=== PATIENT | male | born 1990 | race Caucasian/White ===

== ENCOUNTER 2024-11-24 22:12 | Emergency (ER) | payer OTHER, SELFPAY ==
--- NOTE | 2024-11-24 22:15 | XRR_ITS ---
PROCEDURE INFORMATION: Exam: XR Left Foot Exam date and time: 11/24/2024 10:51 PM Age: 34 years old Clinical indication: Left; Patient HX: Lt foot pain after dropping piano onto foot; Deep open lac to lateral lt foot near 5th digit TECHNIQUE: Imaging protocol: Radiologic exam of the left foot. Views: 3 or more views. COMPARISON: No relevant prior studies available. FINDINGS: Bones/joints: There is a comminuted fracture involving the base of the distal 1st phalanx. There is a transverse fracture through the tuft of the 1st digit. There are comminuted minimally displaced fractures through the distal aspect of the proximal 2nd and 3rd phalanx. Suspected nondisplaced fracture through the mid aspect of the mid 2nd phalanx. There is a comminuted minimally displaced fracture through the proximal mid 4th phalanx. There is a comminuted minimally displaced fracture through the mid proximal 5th phalanx. No additional fractures identified. Soft tissues: A small amount of subcutaneous emphysema involves the lateral aspect of the forefoot suggesting a puncture wound. XR/XR foot LT min 3V* [id number] IMPRESSION: 1. Fractures involving the 1st through 5th digits as detailed. 2. Suspected laceration injury involving the lateral aspect of the forefoot.
[2024-11-24 22:22] VITALS: BP 144/83; PULSE 98; RESP 18; TEMP 36.7; O2SAT 96; BMI 20.3
--- NOTE | 2024-11-24 23:35 | ED_ITS ---
Documented by User: Devan Ji DO 11/25/24 01:27 HPI - Extremity Problem General: Chief complaint: Extremity Injury, Lower Stated complaint: Dropped Piano on L Foot Time Seen by Provider: 11/24/24 23:29 History of Present Illness: Patient arrives with private vehicle with complaints of left foot pain. Patient dropped a PNO on his left foot and has extreme pain in his distal foot. Patient is actively bleeding but bleeding is controlled at this time. Related Data Previous Rx's Medication Instructions Recorded cephalexin 500 mg capsule 500 mg PO Q6H 7 days #28 caps 11/25/24 hydrocodone 5 mg-acetaminophen 325 1 tab PO Q6H PRN pain #14 tabs 11/25/24 mg tablet Allergies Allergy/AdvReac Type Severity Reaction Status Date / Time No Known Allergies Allergy Verified 11/24/24 22:26 Review of Systems General: Reports: 10 or more systems reviewed and unremarkable except in HPI and below Physical Exam Const: COMMON NORMALS: no acute distress, average body habitus, patient oriented x3, no limitations, healthy appearing, alert and well nourished HENMT: COMMON NORMALS: normocephalic, atraumatic, hearing grossly normal bilaterally, external ears normal, Normal external nose present and moist oral mucous membranes HEAD & SCALP: normocephalic and atraumatic NOSE: Normal external nose present EXTERNAL EAR: Yes external ears normal Neck/C-Spine: COMMON NORMALS: no JVD Chest: COMMONS NORMALS: normal inspection of the chest and normal palpation of entire chest wall Resp: COMMON NORMALS: normal respiratory effort, No retractions, No use of accessory muscles and clear to auscultation bilaterally AUSCULTATION: clear to auscultation bilaterally Cardio: COMMON NORMALS: no JVD, regular rate, regular rhythm, S1 normal heart sound present, S2 normal heart sound present, No gallops present (Cardio), No clicks present (Cardio), No murmurs present (Cardio) and No rub (Cardio) RATE: regular rate RHYTHM: regular rhythm HEART SOUNDS: S1 normal heart sound present and S2 normal heart sound present Extremity: NARRATIVE EXTREMITY EXAM: Positive sensation in all EXTR extremities toes, good cap refill, multiple lacerations and bruising across metatarsal phalangeal area. These were sutured up by the PA. Neuro: COMMON NORMALS: patient oriented x3 SENSORIUM/ORIENTATION: Yes alert Course Vital Signs: Vital signs: Vital Signs Temperature 98.1 F 11/24/24 22:22 Pulse Rate 98 11/24/24 22:22 Respiratory Rate 20 H 11/25/24 00:06 Blood Pressure 144/83 11/24/24 22:22 Pulse Oximetry 100 11/25/24 00:06 Oxygen Delivery Me thod Room Air 11/24/24 22:22 MDM - Extremity (Nontraumatic) Medical Decision Making Discussed case with Dr. Ralph podiatry we will so with the lacerations up place patient in a boot or cast shoe give him an antibiotic pain control and have him follow-up with Dr. Ralph on Wednesday. Medical Records I reviewed the patient's medical records. Lab Data I reviewed the patient's lab results. Radiology Impressions Foot X-Ray 11/24/24 22:15 IMPRESSION: 1. Fractures involving the 1st through 5th digits as detailed. 2. Suspected laceration injury involving the lateral aspect of the forefoot. All radiology interpretation(s) finalized by discharge Discharge Plan Discharge Patient Disposition: Home Clinical Impression: Open fracture of multiple phalanges of toe of left foot Condition: Stable Prescriptions: New hydrocodone-acetaminophen 5-325 mg tablet 1 tab PO Q6H PRN (Reason: pain) Qty: 14 0RF cephalexin 500 mg capsule 500 mg PO Q6H 7 Days Qty: 28 0RF Discharge Orders: Discharge ED (Routine); Ordered 11/25/24 Ordered By: Devan Ji Patient Instructions: Fractures - Phalanx (Toe), Opioid Safety, Pain Management Activity Restrictions/Additional Instructions: You have been called in antibiotics and pain medicine. Please pick them up at the pharmacy and take them as directed. Please follow-up with Dr. Ralph podiatry's office first thing Wednesday morning. Call for an appointment. He said he will get in that day. Please keep your wounds clean and dry. Please use your crutches and be nonweightbearing as much as possible. Coding Level of Care Code ED Rotary Swaging Machine Operator for Chg Fwd Documented by User: AMANDA Hayden 11/25/24 00:53 HPI - Extremity Problem General: Chief complaint: Extremity Injury, Lower Stated complaint: Dropped Piano on L Foot Time Seen by Provider: 11/24/24 23:29 Related Data Previous Rx's Medication Instructions Recorded cephalexin 500 mg capsule 500 mg PO Q6H 7 days #28 caps 11/25/24 hydrocodone 5 mg-acetaminophen 325 1 tab PO Q6H PRN pain #14 tabs 11/25/24 mg tablet Allergies Allergy/AdvReac Type Severity Reaction Status Date / Time No Known Allergies Allergy Verified 11/24/24 22:26 Procedures Laceration Laceration 1: Site: lower extremity Side (If applicable): left Size (cm): 6 Description: flap and clean Depth: simple, single layer Local Anesthetic: lidocaine 1% Amount of anesthesia used (mL): 10 Pre-repair: wound explored, irrigated extensively and deep structures intact Skin layer closed with: nylon Size (cm): 4-0 Number of sutures: 10 Technique: simple, interrupted Laceration 2: Site: lower extremity Side (If applicable): left Size (cm): 1 Description: linear and clean Depth: simple, single layer Local Anesthetic: lidocaine 1% and with epi Amount of anesthesia used (mL): 1 Pre-repair: wound explored Skin layer closed with: nylon Size (cm): 4-0 Number of sutures: 1 Technique: simple, interrupted Course Vital Signs: Vital signs: Vital Signs Temperature 98.1 F 11/24/24 22:22 Pulse Rate 98 11/24/24 22:22 Respiratory Rate 20 H 11/25/24 00:06 Blood Pressure 144/83 11/24/24 22:22 Pulse Oximetry 100 11/25/24 00:06 Oxygen Delivery Me thod Room Air 11/24/24 22:22 MDM - Extremity (Nontraumatic) Lab Data Radiology Impressions Foot X-Ray 11/24/24 22:15 IMPRESSION: 1. Fractures involving the 1st through 5th digits as detailed. 2. Suspected laceration injury involving the lateral aspect of the forefoot. Discharge Plan Discharge Patient Disposition: Home Clinical Impression: Open fracture of multiple phalanges of toe of left foot Condition: Stable Prescriptions: New hydrocodone-acetaminophen 5-325 mg tablet 1 tab PO Q6H PRN (Reason: pain) Qty: 14 0RF cephalexin 500 mg capsule 500 mg PO Q6H 7 Days Qty: 28 0RF Discharge Orders: Discharge ED (Routine); Ordered 11/25/24 Ordered By: Devan Ji Patient Instructions: Fractures - Phalanx (Toe), Opioid Safety, Pain Management Activity Restrictions/Additional Instructions: You have been called in antibiotics and pain medicine. Please pick them up at the pharmacy and take them as directed. Please follow-up with Dr. Ralph podiatry's office first thing Wednesday morning. Call for an appointment. He said he will get in that day. Please keep your wounds clean and dry. Please use your crutches and be nonweightbearing as much as possible. Coding Level of Care Code ED Rotary Swaging Machine Operator for Luis Garcia
[2024-11-25] MEDS: ondansetron 2 mg/ML SDV 2 mL 8 MG IVP (00:05)
[2024-11-25 00:06] VITALS: RESP 20; O2SAT 100
[2024-11-25] MEDS: morphine 4 mg/mL SDV 1 mL 8 MG IVP (00:06)
[2024-11-25] MEDS: ceFAZolin 1,000 mg SDV 1000 MG IVP (00:08)
[2024-11-25] MEDS: HYDROcodone-acetaminophen 5-325 mg Tablet 2 TAB PO (02:19)
[2024-11-25] MEDS: cephALEXin 500 mg Capsule PO (02:19)
[2024-11-25 02:20] VITALS: BP 142/96; PULSE 62; RESP 18; O2SAT 100
== END 2024-11-25 02:24 | disposition home or self-care (01) ==
PROVIDERS: Emergency Provider Emergency Medicine
DX: S92.402A Displaced unspecified fracture of left great toe, initial encounter for closed fracture (principal); S92.502A Displaced unspecified fracture of left lesser toe(s), initial encounter for closed fracture; X58.XXXA Exposure to other specified factors, initial encounter
CPT/HCPCS: 73630; 96374; 96375; 99284; E0114; J0690; J2270; J2405

== ENCOUNTER → 2024-12-05 07:45 | Outpatient (BNVA) | payer OTHER, SELFPAY | PROVIDERS: Visit Provider Podiatrist Foot & Ankle Surgery | DX: S92.425D Nondisplaced fracture of distal phalanx of left great toe, subsequent encounter for fracture with routine healing; S92.592D Other fracture of left lesser toe(s), subsequent encounter for fracture with routine healing; W20.8XXD Other cause of strike by thrown, projected or falling object, subsequent encounter | CPT/HCPCS: 73630 ==

== ENCOUNTER → 2024-12-18 10:30 | Outpatient (BNVA) | payer OTHER, SELFPAY | PROVIDERS: Visit Provider Podiatrist Foot & Ankle Surgery | DX: S99.922D Unspecified injury of left foot, subsequent encounter (principal); S92.422G Displaced fracture of distal phalanx of left great toe, subsequent encounter for fracture with delayed healing; S92.502G Displaced unspecified fracture of left lesser toe(s), subsequent encounter for fracture with delayed healing; W20.8XXD Other cause of strike by thrown, projected or falling object, subsequent encounter | CPT/HCPCS: 73630 ==

== ENCOUNTER 2025-01-05 09:50 | Day surgery (SDC) | payer OTHER, SELFPAY ==
[2025-01-05] VITALS (9 sets, daily range): BP systolic 117–159; BP diastolic 57–96; PULSE 61–109; RESP 11–20; TEMP 36.2–37.4; O2SAT 93–99; BMI 20.3
--- NOTE | 2025-01-05 | XR_ITS ---
WS: [id number] XR foot LT 2V [id number] REASON FOR EXAM: MICHOACANO PICS FINDINGS: Longitudinal long pin fixation of fractures of the second through the fifth proximal phalanges of the second through the fifth toes. Surgical appliances are intact and in proper position and alignment. Fracture fragments are in good apposition and alignment of the toes 2 through 4. Moderate displacement persists in the fracture site of the fifth proximal phalanx. XR/XR foot LT 2V [id number] IMPRESSION: Internal fixation of multiple phalangeal fractures as above.
[2025-01-05] MEDS: sodium chloride 0.9% 1,000 ML 30 ML IV (10:25)
--- NOTE | 2025-01-05 10:33 | ANES.PREANE2 ---
Pre-Anesthetic Assessment Height/Weight: Height 6 ft Weight 150 lb Temp Pulse Resp BP Pulse Ox O2 Del Method 99.3 F 109 H 17 159/86 99 Room Air 01/05/25 10:13 01/05/25 10:13 01/05/25 10:13 01/05/25 10:13 01/05/25 10:13 01/05/25 10:13 Preop Diagnosis: Left foot fracture toes 2, 3, 4, 5 Operation Date: 01/05/25 11:30 Proposed Procedures p ORIF second toe fracture, third toe , fourth toe, fifth toe(Left) - Wilmer Ralph DPM s Primary delayed closure left foot(Left) - Wilmer Ralph DPM Was Beta Arturo taken within 24 hours: N/A Was Clonidine taken within 24 hours: N/A Last intake: Intake Last Liquid Date 01/04/25 Last Liquid Time 20:30 Last Solid Date 01/04/25 Last Solid Time 20:30 Social Alcohol and Tobacco Exam alert, oriented x 3, clear to auscultation bilaterally and regular rate & rhythm Airway Submandibular: within normal limits Cervical ROM: within normal limits Mallampati: Class II Comments: Comments: Very poor dentition, denies any loose Anesthetic Plan ASA status: 2 Anesthesia: General Other: Patient has never had anesthesia before NPO since yesterday evening Current smoker, nicotine and marijuana Denies any cardiac issues. Preop BP 159/86 GERD, diet controlled METs greater than 4 Plan for general anesthesia with local via surgeon Medications/Allergies Home Medications ?Medication ?Instructions ?Recorded ?Confirmed ?Last Taken ?Type No Known Home Medications 01/04/25 01/04/25 Unknown History Allergies Allergy/AdvReac Type Severity Reaction Status Date / Time No Known Allergies Allergy Verified 01/04/25 09:09 Current Medications Generic Name Dose Route Start Last Admin Trade Name Freq PRN Reason Stop Dose Admin Sodium Chloride 1,000 mls @ 30 mls/hr 01/05/25 10:15 01/05/25 10:25 Sodium Chloride 0.9% IV 01/06/25 10:14 30 mls/hr .Q24H NAYELI Administration PFSH Anesthesia Social History Smoking and tobacco/nicotine status: current every day tobacco/nicotine user cigarettes Packs smoked per day: 1 Years cigarettes smoked: 15 Second hand smoke exposure: Yes Alcohol intake: current Alcohol intake frequency: few times a month Alcohol type: beer Substance/Drug Use: unknown Data Anesthesia Cardiac Studies: No Data to Display
--- NOTE | 2025-01-05 11:11 | P.HPUD_ITS ---
Surgery/Procedure H&P Update DATE OF PROCEDURE: January 05, 2025 DATE H&P PERFORMED: 12/18/24 H&P UPDATE INFORMATION: I have reviewed H&P completed within last 30 days, I have examined patient prior to procedure, No changes to prior documentation and H&P is in [facility] [place] on date indicated PREOP DIAGNOSIS: Left foot fracture toes 2, 3, 4, 5 PLANNED PROCEDURE: Operation Date: 01/05/25 11:30 Proposed Procedures p ORIF second toe fracture, third toe , fourth toe, fifth toe(Left) - Wilmer Ralph DPM s Primary delayed closure left foot(Left) - Wilmer Ralph DPM
[2025-01-05] MEDS: ceFAZolin 2,000 mg SDV 2000 MG IVP (11:32)
[2025-01-05] MEDS: BUPivacaine liposome 13.3 mg/mL SDV 20 mL 266 MG INJECTION (11:56)
[2025-01-05] MEDS: BUPivacaine 0.5% INJ 10 mL 20 ML INJECTION (11:56)
--- NOTE | 2025-01-05 12:50 | P.BOP_ITS ---
Date of Procedure: 01/21/24 Surgeon: Wilmer Ralph DPM Felt Finishing Supervisor(s): Dior Procedure(s) performed: Open reduction internal fixation left second, third, fourth, fifth toe, delayed closure left foot wound Findings of the procedure(s): friable soft tissue Estimated blood loss: 2 mL Specimen(s) removed: No specimens removed Post-operative diagnosis: left second, third, fourth, fifth toe fracture and laceration left foot
--- NOTE | 2025-01-05 12:51 | P.OP_ITS ---
Operative Report Date of procedure: January 05, 2025 Pre-op diagnosis: Fracture dislocation of joint T14.8XXA Injury of left foot including toes, subsequent encounter S99.922D Closed displaced fracture of distal phalanx of left great toe with delayed healing, subsequent encounter S92.422G Fracture of phalanx of left second toe S92.502A Open fracture of phalanx of left third toe with delayed healing, subsequent encounter S92.502G Open fracture of phalanx of left fourth toe with delayed healing, subsequent encounter S92.502G Open fracture of phalanx of left fifth toe with delayed healing, subsequent encounter S92.502G Laceration without foreign body left foot S91.312 Post-op diagnosis: Fracture dislocation of joint T14.8XXA Injury of left foot including toes, subsequent encounter S99.922D Closed displaced fracture of distal phalanx of left great toe with delayed healing, subsequent encounter S92.422G Fracture of phalanx of left second toe S92.502A Open fracture of phalanx of left third toe with delayed healing, subsequent encounter S92.502G Open fracture of phalanx of left fourth toe with delayed healing, subsequent encounter S92.502G Open fracture of phalanx of left fifth toe with delayed healing, subsequent encounter S92.502G Laceration without foreign body left foot S91.312 Procedure done: 1) open reduction internal fixation left second toe fracture. CPT code 99140 2) open reduction internal fixation left third toe fracture. CPT code 48592 3) open reduction internal fixation left fourth toe fracture. CPT code 87113 4) open reduction internal fixation left fifth toe fracture. CPT code 89921 5) primary delayed closure left foot. CPT code 00334. Implants: 0.45 K wire with Ellie ball x 4 4-0 Vicryl, 4-0 nylon Specimens removed/disposition: no specimens removed Pathology: No pathology specimens Surgeon: Wilmer Ralph DPM Motion Study Technician: Constanza Ulloa Estimated blood loss: 2 44 IV fluids: See intraoperative documentation Urine output: No urine output Complications: no complications intraoperatively. Brief History: 34 year old male patient presenting to clinic for evaluation of left foot injury. DOI 11/24/24. Patient reports moving a piano and piano fell onto his left foot. Patient was treated for a open fracture to left foot. ? Planning on ORIF: Left second toe proximal phalanx Left second toe intermediate phalanx Left third toe proximal phalanx Left fourth toe proximal phalanx Left fifth toe proximal phalanx Delayed wound closure left dorsal foot I reviewed at length with the patient, the risks, potential complications, benefits, alternatives, expectations, and typical outcomes associated with the surgery. The risks and potential complications were explained in detail, including but not limited to infection, wound dehiscence or soft tissue complications, bleeding and hematoma, chronic edema, neuritis or nerve damage producing numbness or chronic pain, CRPS, failure to relieve pain or worsening pain, thick / painful / unsightly scar, limited motion / stiffness, malposition, delayed union, malunion, or nonunion, fracture, reaction to implants, anesthetic complications, venous thromboembolism, and deformity recurrence. I discussed the notion of no regrets with the patient as it pertains to complications and outcomes. The patient seemed to understand the nature of the proposed care and required convalescence. They asked appropriate questions, answered to their satisfaction. They are aware no guarantees can be made as to a satisfactory outcome and they understand there may be other possible unforeseen complications or outcomes not listed here that will be treated accordingly if they arise. Th ere were no written or implied guarantees given to the patient. They gave informed consent to proceed. Procedure: Sedation the patient was brought to the operating room and remained on the gurney in supine position. A timeout was performed. Anesthesia was then administered by the anesthesia service. Local anesthesia injected by myself 5 point ankle block, left lower extremity. Well-padded pneumatic tourniquet applied to the left ankle. The left lower extremity was scrubbed, prepped and draped utilizing normal aseptic technique. Left foot was then elevated and ankle tourniquet inflated to 250 mmHg. Attention was directed to the left forefoot where a full-thickness wound laceration was appreciated to the left foot the sutures that were placed by the emergency department had dehisced and required removal, the left dorsal forefoot wound was debrided of devitalized tissue down to healthy margins sharply with a #15 blade this was debrided of devitalized epidermis, dermis and subcutaneous tissue down to tendon sheath followed by saline irrigation, the wound measured 2.8 cm x 3.7 cm x 0.4 cm and primary delayed closure was then performed of the majority of the wound that was able to be reapproximated to cover extensor tendon sheath utilizing 4-0 Vicryl and 4-0 nylon. Attention was then directed to the left second third fourth and fifth toes where a dorsal incisions were performed directly over the fracture sites through skin with #15 blade with dissection carried down to the phalanx fractures noted left second proximal phalanx and intermediate phalanx, left third proximal phalanx, left fourth proximal phalanx and left fifth proximal phalanx which were curettaged of fracture hematoma, reduced and fixated with 0.45 K wires by [employer], distal end bent dorsally and covered with Ellie ball, intraoperative C-arm confirmed excellent placement of K wire fixation and improvement of fracture sites on toes 2 through 5 of the left foot. The incisions were irrigated with saline solution and closed with 4-0 Vicryl and 4-0 nylon followed by dressing consisting of Xeroform sterile gauze Kerlix and application of well-padded multilayer compressive posterior splint. Tourniquet was deflated and a prompt hyperemic response is noted to the distal digits 1 through 5 the left foot. Patient was then transferred to the PACU with vital signs stable and vascular status intact. Following a period of postoperative monitoring to be discharged home without home care instructions and scheduled follow-up.
--- NOTE | 2025-01-05 13:23 | ANE.PACU2 ---
Inpatient post-anesthesia follow up: Airway intact: Yes Vital signs: Temperature 97.3 F Pulse Rate 67 Respiratory Rate 17 Blood Pressure 117/57 Pulse Oximetry 93 Oxygen Delivery Me thod Room Air Oxygen Flow Rate Fraction of Inspir ed Oxygen Hydration adequate: Yes Nausea and vomiting: No Pain level: 1 Mental status: Baseline
== END 2025-01-05 14:22 | disposition home or self-care (01) ==
PROVIDERS: Visit Provider Podiatrist Foot & Ankle Surgery
PROC: (CPT 28525; principal; 2025-01-05 11:20)
PROC: (CPT 13160; 2025-01-05 11:20)
DX: S92.502G Displaced unspecified fracture of left lesser toe(s), subsequent encounter for fracture with delayed healing (principal); S92.422G Displaced fracture of distal phalanx of left great toe, subsequent encounter for fracture with delayed healing; W20.8XXD Other cause of strike by thrown, projected or falling object, subsequent encounter; S91.312D Laceration without foreign body, left foot, subsequent encounter; K21.9 Gastro-esophageal reflux disease without esophagitis; K08.89 Other specified disorders of teeth and supporting structures; F17.210 Nicotine dependence, cigarettes, uncomplicated
CPT/HCPCS: 28525 ×4; 13160; 73620; 76000; C1713; C9290; J0131; J0690; J1100; J2250; J2405; J2704; J3010; J3490; J7030

== ENCOUNTER → 2025-01-18 14:52 | Outpatient (BNVA) | payer OTHER, SELFPAY | PROVIDERS: Visit Provider Podiatrist Foot & Ankle Surgery | DX: Z98.890 Other specified postprocedural states (principal) | CPT/HCPCS: 73630 ==

== ENCOUNTER → 2025-01-25 14:45 | Outpatient (BNVA) | payer OTHER, SELFPAY | PROVIDERS: Visit Provider Podiatrist Foot & Ankle Surgery | DX: Z98.890 Other specified postprocedural states (principal) | CPT/HCPCS: 73630 ==

== ENCOUNTER → 2025-02-15 13:50 | Outpatient (BNVA) | payer OTHER, SELFPAY | PROVIDERS: Visit Provider Podiatrist Foot & Ankle Surgery | DX: Z98.890 Other specified postprocedural states (principal) | CPT/HCPCS: 73630 ==

== ENCOUNTER → 2025-03-22 13:16 | Outpatient (BNVA) | payer OTHER, SELFPAY | PROVIDERS: Visit Provider Podiatrist Foot & Ankle Surgery | DX: Z98.890 Other specified postprocedural states (principal) | CPT/HCPCS: 73630 ==

== ENCOUNTER → 2025-04-19 11:29 | Outpatient (BNVA) | payer OTHER, SELFPAY | PROVIDERS: Visit Provider Podiatrist Foot & Ankle Surgery | DX: Z98.890 Other specified postprocedural states (principal) | CPT/HCPCS: 73630 ==